=== PATIENT | female | born 1945 | race Caucasian/White ===

== ENCOUNTER → 2016-08-18 | Outpatient (CLI) | payer BC ==
[~2016-08-18] MED LIST: CALCTAB5 PO; COEN150C PO; FLR1 PO; GLC/500 PO; HYD10 PO; HYDR20TA PO; IBUP-1050 PO; MAGN400T6 PO; METO25TA56 PO; Magnesium PO; OMEG10007 PO; OYST500T47 PO; SYN75 PO
[2016-08-18 14:28] LABS: BLOOD UREA NITROGEN 18 mg/dl (7-18); BUN/CREATININE RATIO 23.9 (10-20); CALCIUM 9.3 mg/dl (8.5-10.1); CARBON DIOXIDE 28 mmol/L (21-32); CHLORIDE 104 mmol/L (98-107); CREATININE 0.75 mg/dl (0.60-1.20); GLUCOSE 92 mg/dl (70-99); POTASSIUM 3.7 mmol/L (3.5-5.1); SODIUM 143 mmol/L (136-145)
--- NOTE | 2016-08-24 09:30 | CODING QUERY MEDICAL NECESSITY ---
SUPPORTING DIAGNOSIS NEEDED Dr. Gaona, A supporting diagnosis is required for the test/procedure performed on this patient in order for us to be reimbursed by the patient's insurance. Please provide a supporting diagnosis for the following test/procedure listed below next to the test name along with your signature. *If there is no additional diagnosis for this patient that would support the following test/procedure please document that below next to the test/procedure. Test(s)/Procedure(s) that require a supporting diagnosis: * ([id number]) VITAMIN D ASSAY DIAGNOSIS: DATE OF SERVICE: 08/18/16 Provider Signature: Date: Thank you Paul Kan [facility] Information Management Once completed, please kindly fax back to [phone] For questions please call [phone] F
== END | disposition home or self-care (01) ==
LOC: C.LABBC 09:25
PROVIDERS: ATTEND Internal Medicine Endocrinology, Diabetes & Metabolism
DX: E27.1 Primary adrenocortical insufficiency (principal); E03.8 Other specified hypothyroidism; E06.3 Autoimmune thyroiditis; F41.9 Anxiety disorder, unspecified; M85.80 Other specified disorders of bone density and structure, unspecified site

== ENCOUNTER → 2016-10-30 | Outpatient (CLI) | payer BC ==
[~2016-10-30] MED LIST changes: -FLR1 PO; +FLUD0.1T PO
[2016-10-30 12:38] LABS: BLOOD UREA NITROGEN 19 mg/dl (7-18); BUN/CREATININE RATIO 26.8 (10-20); CARBON DIOXIDE 29 mmol/L (21-32); CHLORIDE 106 mmol/L (98-107); CREATININE 0.71 mg/dl (0.60-1.20); GLUCOSE 100 mg/dl (70-99); POTASSIUM 3.4 mmol/L (3.5-5.1); SODIUM 143 mmol/L (136-145)
== END | disposition home or self-care (01) ==
LOC: C.LAB1850 11:03
PROVIDERS: ATTEND Internal Medicine Endocrinology, Diabetes & Metabolism
DX: E16.2 Hypoglycemia, unspecified (principal); E27.1 Primary adrenocortical insufficiency; E03.8 Other specified hypothyroidism; E06.3 Autoimmune thyroiditis; F41.9 Anxiety disorder, unspecified; M85.80 Other specified disorders of bone density and structure, unspecified site

== ENCOUNTER 2017-01-26 12:35 | Emergency (ER) | payer BC ==
[~2017-01-26] VITALS: Ht 160 cm; Wt 65.1 kg
[~2017-01-26 12:35] MED LIST changes: -GLC/500 PO; -HYDR20TA PO; -MAGN400T6 PO; -OYST500T47 PO
[2017-01-26 12:38] VITALS: TEMP 36.6; Ht 160 cm; Wt 65.1 kg
[2017-01-26] MEDS ORDERED: SODIUM CHLORIDE 0.9% 1000ML 1,000 ML IV STA (12:45)
[2017-01-26] MEDS ORDERED: SODIUM CHLORIDE 0.9% 500ML 500 ML IV STA (12:45)
[2017-01-26 12:58] VITALS: O2SAT 96
[2017-01-26 12:58] LABS: BASO % 0.1 %; BASO ABS # 0.02 K/uL (0-0.2); COMPLETE YES; EOS % 0.6 %; IG% 0.3 %; LYMPH ABS # 1.82 K/uL (1.2-3.4); MEAN CELL VOLUME 95.1 fL (80-100); MEAN CORPUSCULAR HEMOGLOBIN 32.8 pg (25-34); MEAN CORPUSCULAR HGB CONC 34.4 g/dl (32-36); MEAN PLATELET VOLUME 8.9 fL (7.4-10.4); MONO % 3.7 %; NEUT % 82.3 %; PLATELET COUNT 333 K/uL (130-400); RED BLOOD COUNT 4.73 M/uL (4.2-5.4); WHITE BLOOD COUNT 13.98 K/uL (4.8-10.8)
[2017-01-26 13:09] LABS: PROTHROMBIN TIME (PATIENT) 10.3 SECONDS (9.0-12.0)
--- NOTE | 2017-01-26 13:18 | DIAGNOSTIC IMAGING REPORT ---
CHEST ONE VIEW PORTABLE HISTORY: EVALUATE WEAKNESS COMPARISON: Chest 07/21/2016. FINDINGS: The lungs are clear. Cardiac silhouette is mildly enlarged. This remains unchanged.. No pleural effusions. No pneumothorax. Surgical clips within the left axilla. IMPRESSION: No significant change compared to the prior study. No acute process. Electronically signed by: Hugo Celaya M.D. 01/26/2017 1:16 PM Dictated Date/Time: 01/26/2017 1:15 PM
[2017-01-26 13:19] LABS: ALT/SGPT 26 U/L (12-78); BLOOD UREA NITROGEN 18 mg/dl (7-18); BUN/CREATININE RATIO 18.9 (10-20); CALCIUM 10.6 mg/dl (8.5-10.1); CARBON DIOXIDE 31 mmol/L (21-32); CHLORIDE 104 mmol/L (98-107); CREATININE 0.94 mg/dl (0.60-1.20); GLUCOSE 121 mg/dl (70-99); MAGNESIUM 2.6 mg/dl (1.8-2.4); POTASSIUM 3.4 mmol/L (3.5-5.1); SODIUM 142 mmol/L (136-145)
[2017-01-26 13:28] LABS: ALKALINE PHOSPHATASE 84 U/L (45-117); AST/SGOT 19 U/L (15-37); CKMB/CK RATIO 1.1 (0-3.0); THYROID STIMULATING HORMONE 0.616 uIu/ml (0.300-4.500)
--- NOTE | 2017-01-26 13:32 | DIAGNOSTIC IMAGING REPORT ---
CT OF THE HEAD WITHOUT CONTRAST CLINICAL HISTORY: Dizziness. Weakness. COMPARISON STUDY: MRI of the brain September 19, 2013. CT DOSE: 537.48 mGy.cm TECHNIQUE: Helical axial images of the head were obtained without IV contrast. Automated exposure control was utilized for the study. FINDINGS: No acute intracranial hemorrhage, midline shift or mass effect is present. Ventricular system is normal. Basilar cisterns are patent. There are no extra-axial collections. White matter hypodensity suggests small vessel disease. There are no findings to suggest acute dural sinus thrombosis or acute territorial infarct. There are no significant calvarial abnormalities. Visualized portions of the sinuses and mastoid air cells are clear. IMPRESSION: No acute intracranial findings. Electronically signed by: Pravin March M.D. 01/26/2017 1:31 PM Dictated Date/Time: 01/26/2017 1:29 PM
[2017-01-26] MEDS ORDERED: HYDR20TA PO (13:59)
[2017-01-26] MEDS ORDERED: OYST500T47 PO (13:59)
[2017-01-26] MEDS ORDERED: MAGN400T6 PO (13:59)
[2017-01-26] MEDS ORDERED: GLC/500 PO (13:59)
[2017-01-26 14:18] LABS: URINE APPEARANCE CLEAR (CLEAR); URINE BILIRUBIN NEG (NEG); URINE COLOR DK YELLOW; URINE NITRITE NEG (NEG); URINE PH 7.5 (4.5-7.5); URINE SPECIFIC GRAVITY 1.014 (1.000-1.030); UROBILINOGEN NEG (NEG)
[2017-01-26 14:27] LABS: MANUAL MICROSCOPIC REQUIRED? NO; REVIEW REQ? NO
[2017-01-26 17:18] VITALS: BP 145/86; PULSE 72; O2SAT 95
--- NOTE | 2017-01-26 18:10 | EMERGENCY ROOM VISIT NOTE ---
History Report prepared by Darrel: Kareen Chu Under the Supervision of: Dr. Kei Gibson M.D. First contact with patient: 12:39 Chief Complaint: DIZZY Stated Complaint: DIZZINESS Nursing Triage Summary: Pt c/o not feeling well since yesterday. Became dizzy today and "collapsed" herself. Denies falling down or hitting head. History of Present Illness The patient is a 71 year old female who presents to the Emergency Room with complaints of worsening weakness beginning yesterday. She notes that standing worsens her weakness symptoms. The patient is also experiencing dizziness that occurred 45 minutes prior to arrival. She denies spinning room sensation or that rotation of the head worsens symptoms. The patient states that she feels off balance. The patient also reports a body heaviness all over. She is experiencing nausea, diarrhea and tingling to extremities. The patient notes she felt fatigued yesterday. The patient has a history of Satish's disease. She had 2 episodes of Parkinson disease, the symptoms resolved 2 years ago which had lasted for a few years. The Parkinson disease was found via CT scan. She notes her weakness feels similar to when she had the Parkinson symptoms. Pt denies LOC, headache, fevers, chills, diaphoresis, visual changes, neck pain, chest pain, breathing difficulties, vomiting, abdominal pain, back pain, melena , hematochezia, urinary symptoms, numbness, lymphadenopathy, rash, or other complaints. Source of History: patient Onset: yesterday Position: other (global) Quality: other (weakness) Timing: worsening Associated Symptoms: + nausea, + diarrhea, + fatigue Note: The patient is experiencing dizziness. Review of Systems See HPI for pertinent positives and negatives. A total of ten systems were reviewed and were otherwise negative. 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 Family History No pertinent family history Social History Smoking Status: Never Smoker Marital Status: Housing Status: lives with family Occupation Status: retired Current/Historical Medications Scheduled Coenzyme Q10 (Ubidecarenone) (Co Q-10), 200 MG PO BID Fish Oil ([place]-3), 2 CAP PO DAILY Fludrocortisone Acetate (Fludrocortisone Acetate), 0.1 MG PO QAM Hydrocortisone (Cortef), 5 MG PO QPM Hydrocortisone (Cortef), 20 MG PO DAILY Ibuprofen (Advil), 200-600 MG PO Q4H Levothyroxine Sodium (Synthroid), 75 MCG PO QAM Magnesium Oxide (Mag-Ox), 400 MG PO DAILY Metformin Hcl (Glucophage), 500 MG PO DAILY Oyster Shell (Calcium), 500 MG PO DAILY Allergies Coded Allergies: Sulfa Drugs (Verified Allergy, Mild, NOT SURE SICK ALL OVER, 01/26/17) [place] Oil (Unverified Allergy, Unknown, GI UPSET, 01/26/17) Dairy (Unverified Allergy, Unknown, CARO, 01/26/17) Iodinated Diagnostic Agents (Unverified Allergy, Unknown, HIVES, 01/26/17) Soy Allergy (Unverified Allergy, Unknown, CARO, 01/26/17) Wheat (Unverified Allergy, Unknown, CARO, 01/26/17) Physical Exam Vital Signs Date Time Temp Pulse Resp B/P (MAP) Pulse Ox O2 Delivery O2 Flow Rate FiO2 01/26/17 17:18 72 16 145/86 95 01/26/17 16:22 79 18 145/86 95 Room Air 01/26/17 15:31 96 Room Air 01/26/17 14:34 83 17 144/81 95 Room Air 01/26/17 13:07 68 16 163/89 96 Room Air 01/26/17 12:59 66 159/78 71 175/89 88 156/88 01/26/17 12:58 96 Room Air 01/26/17 12:46 73 01/26/17 12:38 36.6 70 16 183/92 95 Room Air Physical Exam GENERAL: Awake, alert, well appearing, no distress HENT: Normocephalic, atraumatic. TM's normal. Oropharynx unremarkable. EYES: PERRL. EOMI. Normal conjunctiva. Sclera non-icteric. NECK: Supple. No nuchal rigidity. FROM. No JVD or bruit. RESPIRATORY: CTA CARDIAC: RRR. No murmur. ABDOMEN: Soft, non distended. No tenderness to palpation. No rebound or guarding. No masses. RECTAL: Deferred. MUSCULOSKELETAL: Unremarkable. No edema. No discoloration. Gross motor strength symmetric. NEURO: Cranial nerves 2-12 grossly intact. Normal sensorium. No sensory or motor deficits noted. Speech normal. No pronator drift. 2+ reflex to upper extremities. SKIN: No rash or jaundice noted. LYMPH: No adenopathy. Medical Decision & Procedures ER Provider Diagnostic Interpretation: Radiology results as stated below per my review and radiologist interpretation: CT OF THE HEAD WITHOUT CONTRAST CLINICAL HISTORY: Dizziness. Weakness. COMPARISON STUDY: MRI of the brain September 19, 2013. CT DOSE: 537.48 mGy.cm TECHNIQUE: Helical axial images of the head were obtained without IV contrast. Automated exposure control was utilized for the study. FINDINGS: No acute intracranial hemorrhage, midline shift or mass effect is present. Ventricular system is normal. Basilar cisterns are patent. There are no extra-axial collections. White matter hypodensity suggests small vessel disease. There are no findings to suggest acute dural sinus thrombosis or acute territorial infarct. There are no significant calvarial abnormalities. Visualized portions of the sinuses and mastoid air cells are clear. IMPRESSION: No acute intracranial findings. Electronically signed by: Pravin March M.D. 01/26/2017 1:31 PM Dictated Date/Time: 01/26/2017 1:29 PM CHEST ONE VIEW PORTABLE HISTORY: EVALUATE WEAKNESS COMPARISON: Chest 07/21/2016. FINDINGS: The lungs are clear. Cardiac silhouette is mildly enlarged. This remains unchanged.. No pleural effusions. No pneumothorax. Surgical clips within the left axilla. IMPRESSION: No significant change compared to the prior study. No acute process. Electronically signed by: Hugo Celaya M.D. 01/26/2017 1:16 PM Dictated Date/Time: 01/26/2017 1:15 PM Laboratory Results 01/26/17 12:40 Red Blood Count 4.73, Mean Corpuscular Volume 95.1, Mean Corpuscular Hemoglobin 32.8, Mean Corpuscular Hemoglobin Concent 34.4, Mean Platelet Volume 8.9, Neutrophils (%) (Auto) 82.3, Lymphocytes (%) (Auto) 13.0, Monocytes (%) (Auto) 3.7, Eosinophils (%) (Auto) 0.6, Basophils (%) (Auto) 0.1, Neutrophils # (Auto) 11.49, Lymphocytes # (Auto) 1.82, Monocytes # (Auto) 0.52, Eosinophils # (Auto) 0.09, Basophils # (Auto) 0.02 01/26/17 12:40 Test 01/26/17 12:40 01/26/17 13:45 White Blood Count 13.98 K/uL (4.8-10.8) Red Blood Count 4.73 M/uL (4.2-5.4) Hemoglobin 15.5 g/dL (12.0-16.0) Hematocrit 45.0 % (37-47) Mean Corpuscular Volume 95.1 fL (80-100) Mean Corpuscular Hemoglobin 32.8 pg (25-34) Mean Corpuscular Hemoglobin Concent 34.4 g/dl (32-36) Platelet Count 333 K/uL (130-400) Mean Platelet Volume 8.9 fL (7.4-10.4) Neutrophils (%) (Auto) 82.3 % Lymphocytes (%) (Auto) 13.0 % Monocytes (%) (Auto) 3.7 % Eosinophils (%) (Auto) 0.6 % Basophils (%) (Auto) 0.1 % Neutrophils # (Auto) 11.49 K/uL (1.4-6.5) Lymphocytes # (Auto) 1.82 K/uL (1.2-3.4) Monocytes # (Auto) 0.52 K/uL (0.11-0.59) Eosinophils # (Auto) 0.09 K/uL (0-0.5) Basophils # (Auto) 0.02 K/uL (0-0.2) RDW Standard Deviation 47.6 fL (36.4-46.3) RDW Coefficient of Variation 13.7 % (11.5-14.5) Immature Granulocyte % (Auto) 0.3 % Immature Granulocyte # (Auto) 0.04 K/uL (0.00-0.02) Prothrombin Time 10.3 SECONDS (9.0-12.0) Prothromb Time International Ratio 1.0 (0.9-1.1) Activated Partial Thromboplast Time 25.7 SECONDS (21.0-31.0) Partial Thromboplastin Ratio 1.0 Anion Gap 7.0 mmol/L (3-11) Est Creatinine Clear Calc Drug Dose 51.2 ml/min Estimated GFR () 71.7 Estimated GFR (Non- 61.9 BUN/Creatinine Ratio 18.9 (10-20) Calcium Level 10.6 mg/dl (8.5-10.1) Magnesium Level 2.6 mg/dl (1.8-2.4) Total Bilirubin 0.7 mg/dl (0.2-1) Direct Bilirubin 0.1 mg/dl (0-0.2) Aspartate Amino Transf (AST/SGOT) 19 U/L (15-37) Alanine Aminotransferase (ALT/SGPT) 26 U/L (12-78) Alkaline Phosphatase 84 U/L (45-117) Total Creatine Kinase 64 U/L (26-192) Creatine Kinase MB 0.7 ng/ml (0.5-3.6) Creatine Kinase MB Ratio 1.1 (0-3.0) Troponin I < 0.015 ng/ml (0-0.045) Total Protein 7.7 gm/dl (6.4-8.2) Albumin 4.2 gm/dl (3.4-5.0) Lipase 201 U/L (73-393) Thyroid Stimulating Hormone (TSH) 0.616 uIu/ml (0.300-4.500) Urine Color DK YELLOW Urine Appearance CLEAR (CLEAR) Urine pH 7.5 (4.5-7.5) Urine Specific [place] 1.014 (1.000-1.030) Urine Protein NEG (NEG) Urine Glucose (UA) NEG (NEG) Urine Ketones NEG (NEG) Urine Occult Blood NEG (NEG) Urine Nitrite NEG (NEG) Urine Bilirubin NEG (NEG) Urine Urobilinogen NEG (NEG) Urine Leukocyte Esterase NEG (NEG) Laboratory results reviewed by me Medications Administered Medications (Trade) Dose Ordered Sig/Kasie Route Start Time Stop Time Status Last Admin Dose Admin Sodium Chloride 1,000 ml @ 125 mls/hr Q8H STAT IV 01/26/17 12:45 01/26/17 17:45 DC 01/26/17 12:45 125 MLS/HR Sodium Chloride 500 ml @ 999 mls/hr Q31M STAT IV 01/26/17 12:45 01/26/17 13:15 DC 01/26/17 13:07 999 MLS/HR ECG Indication: other (dizziness) Rate (beats per minute): 67 Rhythm: normal sinus Findings: no acute ischemic change, no ectopy ED Course 1242: The patient was evaluated in room B7. A complete history and physical exam was performed. 1245: Sodium Chloride 500 ml @ 999 mls/hr IV, Sodium Chloride 1,000 ml @ 125 mls /hr IV. 1520: The patient is feeling better. Doing an ambulatory trial. 1612: I spoke to Dr. Baum - Neurology about the patient. He will see her in the office as an outpatient. 1631: The patient is doing better. She ambulated well. She will follow up with [facility]. 1657: I reevaluated the patient. Discussed results and discharge instructions: She verbalized understanding and agreement. The patient is ready for discharge. Medical Decision Medication Reconciliation: I attest that I have personally reviewed the patient' s current medication list Blood pressure screening: Patient was found to have an elevated blood pressure and was referred to their primary doctor for recheck and further treatment. History of A. fib he is actually she/is clear to the point where she had dyspnea on exertion left-sided chest pain patient is Triage Nursing notes reviewed. The patient's presentation and history were concerning for weakness. Etiologies such as metabolic, infection, hypo/hyperglycemia, electrolyte abnormalities, cardiac sources, intracerebral event, toxicologic, neurologic, as well as others were entertained. The patient was evaluated. Blood work, ECG, imaging and fluids were ordered. The patient had a slight leukocytosis but has just recently increased her steroid use. Her imaging did not reveal any significant findings. Her chemistry panel, LFTs, TSH, cardiac markers, and lipase were unremarkable. The patient's magnesium and calcium were minimally elevated. Her potassium was minimally diminished. None of these values were significant enough to cause her symptoms. The patient had a nonfocal neurologic examination. She had good reflexes. CT imaging did not reveal any major issues. The patient was reassessed. She was ambulated and she felt well. The exact etiology of her symptoms is not known at this time and they have resolved. I did discuss the case with Dr. Baum of neurology. He recommended conservative management and following up in the office with [facility] neurology as scheduled. Patient and felt very comfortable with this plan. If she worsens in any way she will come back to the emergency department for reevaluation. By the evaluation outlined above other emergent etiologies such as those listed in the differential, as well as others, were deemed relatively unlikely. The patient was educated about the findings as listed above. All questions were answered and the patient was pleased with the treatment. Return instructions were outlined and the patient was discharged in stable condition. The patient was referred to neurology and her facilities assistant for follow-up for a recheck of the current condition. Consults Time Called: 1609 Consulting Physician: Dr. Sarika Goncalves Neurology Returned Call: [address] Sarika Pacheco about the patient. He will see her in the office as an outpatient. Impression Primary Impression: Weakness Scribe Attestation The scribe's documentation has been prepared under my direction and personally reviewed by me in its entirety. I confirm that the note above accurately reflects all work, treatment, procedures, and medical decision making performed by me. Departure Information Dispostion Home / Self-Care Referrals Earnest Carpio M.D. (PCP) Forms HOME CARE DOCUMENTATION FORM, IMPORTANT VISIT INFORMATION Patient Instructions My [facility] Additional Instructions Continue your current medications. Contact your facilities assistant for further direction. Follow-up with [facility] neurology as scheduled. Return to the ER for worsening weakness, chest pain, urinary issues, headaches, passing out, abdominal pain, vomiting, fevers, bloody stools, or as needed.
== END 2017-01-26 17:19 | disposition home or self-care (01) ==
LOC: EDBD 12:35 → C.EDB 12:36
DX: R53.1 Weakness (principal); R42 Dizziness and giddiness; Z85.3 Personal history of malignant neoplasm of breast; E27.1 Primary adrenocortical insufficiency

== ENCOUNTER → 2017-04-22 | Outpatient (CLI) | payer BC ==
[~2017-04-22] MED LIST changes: -CALCTAB5 PO; +FLR1 PO; -FLUD0.1T PO; +GLC/500 PO; +HYDR20TA PO; +MAGN400T6 PO; -METO25TA56 PO; -Magnesium PO; +OYST500T47 PO
[2017-04-22 09:41] LABS: HEMATOCRIT 41.7 % (37-47); MEAN CELL VOLUME 95.4 fL (80-100); MEAN CORPUSCULAR HGB CONC 33.6 g/dl (32-36); MEAN PLATELET VOLUME 9.4 fL (7.4-10.4); PLATELET COUNT 362 K/uL (130-400); RED BLOOD COUNT 4.37 M/uL (4.2-5.4); WHITE BLOOD COUNT 7.08 K/uL (4.8-10.8)
[2017-04-22 09:57] LABS: ESTIMATED AVERAGE GLUCOSE 111 mg/dl; HA1C FLAG Normal (Normal)
[2017-04-22 10:00] LABS: BLOOD UREA NITROGEN 17 mg/dl (7-18); CREATININE 0.73 mg/dl (0.60-1.20); GLUCOSE 82 mg/dl (70-99)
[2017-04-22 10:01] LABS: ALT/SGPT 24 U/L (12-78); BUN/CREATININE RATIO 23.3 (10-20); CALCIUM 9.6 mg/dl (8.5-10.1); CARBON DIOXIDE 29 mmol/L (21-32); CHLORIDE 106 mmol/L (98-107); POTASSIUM 3.7 mmol/L (3.5-5.1); SODIUM 142 mmol/L (136-145)
[2017-04-22 10:02] LABS: CHOLESTEROL/HDL RATIO 2.5; MAGNESIUM 2.3 mg/dl (1.8-2.4)
[2017-04-22 10:03] LABS: ALB/GLOB RATIO 1.1 (0.9-2); ALKALINE PHOSPHATASE 79 U/L (45-117); AST/SGOT 22 U/L (15-37)
[2017-04-22 10:19] LABS: BASO ABS # 0.06 K/uL (0-0.2); BASOPHIL % 0.9 %; COMPLETE YES; EOSINOPHIL % 1.7 %; LYMPH ABS # 2.46 K/uL (1.2-3.4); LYMPHOCYTE % 34.8 %; NEUTROPHILS % 42.6 %; VARIANT LYMPHOCYTE % 11.3 %
== END | disposition home or self-care (01) ==
LOC: C.LAB1850 07:22
PROVIDERS: ATTEND Internal Medicine
DX: E78.5 Hyperlipidemia, unspecified (principal); I47.1 Supraventricular tachycardia; R73.03 Prediabetes; E03.8 Other specified hypothyroidism; E06.3 Autoimmune thyroiditis; F41.9 Anxiety disorder, unspecified; M85.80 Other specified disorders of bone density and structure, unspecified site; R73.02 Impaired glucose tolerance (oral); D05.12 Intraductal carcinoma in situ of left breast

== ENCOUNTER → 2017-04-29 | Outpatient (CLI) | payer BC ==
--- NOTE | 2017-05-06 08:29 | CODING QUERY MEDICAL NECESSITY ---
SUPPORTING DIAGNOSIS NEEDED Dr. Carpio, A supporting diagnosis is required for the test/procedure performed on this patient in order for us to be reimbursed by the patient's insurance. Please provide a supporting diagnosis for the following test/procedure listed below next to the test name along with your signature. *If there is no additional diagnosis for this patient that would support the following test/procedure please document that below next to the test/procedure. Test(s)/Procedure(s) that require a supporting diagnosis: * ([id number]) VITAMIN D ASSAY DIAGNOSIS: DATE OF SERVICE: 04/29/17 Provider Signature: Date: Thank you Paul Kan [facility] Information Management Once completed, please kindly fax back to [phone] For questions please call [phone]
== END | disposition home or self-care (01) ==
LOC: C.LAB 08:14
PROVIDERS: ATTEND Internal Medicine
DX: E27.40 Unspecified adrenocortical insufficiency (principal); G62.9 Polyneuropathy, unspecified; E03.9 Hypothyroidism, unspecified

== ENCOUNTER → 2017-08-31 | Outpatient (CLI) | payer BC ==
[~2017-08-31] MED LIST changes: -FLR1 PO; +FLUD0.1T PO
== END | disposition home or self-care (01) ==
LOC: C.PAPS 16:50
PROVIDERS: ATTEND Obstetrics & Gynecology
DX: Z01.419 Encounter for gynecological examination (general) (routine) without abnormal findings (principal)

== ENCOUNTER → 2018-02-07 | Day surgery (SDC) | payer BC ==
[~2018-02-07] VITALS: Ht 160 cm; Wt 59.0 kg
[2018-02-07 08:35] VITALS: BP 180/92; PULSE 66; TEMP 36.7; O2SAT 98; Ht 160 cm; Wt 59.0 kg
[2018-02-07 12:40] VITALS: BP 163/96; PULSE 76; TEMP 37
--- NOTE | 2018-03-09 13:02 | EDITING REQUIRED CODING QUERY ---
: 1945 TREATMENT RENDERED WITHOUT A DIAGNOSIS To promote full compliance with coding requirements relating to patient care, physician participation is requested in all cases of digital marketing project manager uncertainty. Please assist us with providing a diagnosis/symptom for the test(s) below: A diagnosis/symptom was not documented on your Order. A valid diagnosis/symptom is required to bill all insurances. Please remember that we are unable to code a diagnosis of rule out, probable, possible, questionable, or suspected. Tests that require a diagnosis: DOS: 02/07/2018 Hydrogen Breath Test DIAGNOSIS: Abdominal pain , bloating .. Provider Signature: Date: Thank you Nora Stokes, [facility] Information Management Once completed, please kindly fax back to [phone] For questions please call [phone]
== END | disposition home or self-care (01) ==
LOC: C.MTU 08:06
PROVIDERS: ATTEND Internal Medicine
DX: R10.9 Unspecified abdominal pain (principal); R14.0 Abdominal distension (gaseous)